=== PATIENT | male | born 1965 | race Caucasian/White ===

== ENCOUNTER 2023-06-25 12:34 | Outpatient (OUT) | payer OTHER, SELFPAY ==
[2023-06-25 13:12] LABS: Basophils Percent Auto 0.7 % (0.2-2.0); Eosinophils Absolute Auto 0.2 10^3/uL (0.0-0.7); Eosinophils Percent Auto 2.9 % (0.9-7.0); Hematocrit 38.7 % (42.0-54.0); Hemoglobin 12.8 g/dL (14.0-18.0); Immature Granulocytes Abs Auto 0.02 10^3/uL (0.00-0.03); Immature Granulocytes Pct Auto 0.4 % (0.0-0.5); Lymphocytes Absolute Auto 1.7 10^3/uL (1.2-3.8); Lymphocytes Percent Auto 30.8 % (20.5-60.0); Mean Corpuscular HGB Conc 33.1 g/dL (29.9-35.2); Mean Corpuscular Hemoglobin 31.1 pg (25.9-34.0); Mean Corpuscular Volume 94.2 fL (80.0-94.0); Mean Platelet Volume 9.3 fL (9.5-13.5); Monocytes Absolute Auto 0.5 10^3/uL (0.3-0.8); Monocytes Percent Auto 8.5 % (1.7-12.0); Neutrophils Absolute Auto 3.2 10^3/uL (1.4-6.5); Neutrophils Percent Auto 56.7 % (43.0-75.0); Platelet Count 201 10^3/uL (150-450); Red Blood Count 4.11 10^6/uL (4.70-6.10); Red Cell Distribution Width 12.4 % (11.0-15.0); White Blood Count 5.6 10^3/uL (4.0-11.0)
== END 2023-06-25 12:35 | disposition home or self-care (01) ==
PROVIDERS: PCP Nurse Practitioner; Visit Provider Nurse Practitioner
DX: D50.9 Iron deficiency anemia, unspecified (principal)
CPT/HCPCS: 36415; 82728; 83540; 85025

== ENCOUNTER 2023-08-07 14:16 | Outpatient (OUT) | payer OTHER, SELFPAY ==
--- OUTSIDE RECORDS SUMMARY | 2023-08-07 14:26 | XMS_ITS | CCD ---
Author Name Unknown Address [address] [place] [address] Organization [facility] Care Team Providers Care School Bus Driver/Teacher Assistant Name Role Phone PHYSICIAN, DEFAULT Unavailable Unavailable PHYSICIAN, DEFAULT Unavailable Unavailable ELTAHAWY, EHAB A Unavailable Unavailable [place]WY, EHAB A Unavailable Unavailable AIDEE QUISPE AM Unavailable Unavailable AICHHOLZ, MILE Unavailable Unavailable AICHHOLZ, LINEN MANAGER MILE Consulting Unavailable AICHHOLZ, LINEN MANAGER MILE Attending Unavailable AICHHOLZ, LINEN MANAGER MILE Admitting Unavailable AICHHOLZ, LINEN MANAGER MILE Primary Care Unavailable Allergies Allergy Classification Reported Allergen(s) Allergy Type Date of Onset Reaction(s) Facility (2 sources) No Known Allergies; Translations: [No Known Allergies] Propensity to adverse reactions (disorder) 8 [facility] Repository Problems Problem Classification Problem Date Documented Date Episodic/Chronic Coronary atherosclerosis and other heart disease (2 sources) Atherosclerotic heart disease of [place] coronary artery without angina pectoris; Translations: [ATHSCL HEART DISEASE OF [place] CORONARY ARTERY W/O ANG PCTRS] Onset: 12-05-2017 Chronic Deficiency and other anemia (1 source) Iron deficiency anemia, unspecified; Translations: [IRON DEFICIENCY ANEMIA UNSPECIFIED] Onset: 06-14-2022 Episodic Essential hypertension (5 sources) Essential (primary) hypertension; Translations: [ESSENTIAL (PRIMARY) HYPERTENSION] Onset: 12-05-2017 Chronic Other aftercare (1 source) residential (current) use of aspirin; Translations: [AUTOMATIC PATTERN EDGER (CURRENT) USE OF ASPIRIN] Onset: 12-05-2017 Episodic Substance-related disorders (1 source) Nicotine dependence, cigarettes, uncomplicated; Translations: [NICOTINE DEPENDENCE, CIGARETTES, UNCOMPLICATED] Onset: 12-05-2017 Chronic Unclassified (5 sources) Abnormal result of other cardiovascular function study; Translations: [Encounter for screening for malignant neoplasm of prostate] Onset: 12-05-2017 Episodic Unclassified (2 sources) Unknown / UNK(Unknown) Onset: 12-05-2017 Results Test Name Value Interpretation Reference Range Facility CBC AUTO DIFFon 06-12-2022 BASO # 0.1 103/ul Normal 0.0-0.1 [facility] Comment on above: Performed By: #### CBC #### [facility] [address] [address] [address] Randell Stauffer Basophils/100 WBC (Bld) 0.9 % Normal 0.2-2.0 [facility] Comment on above: Performed By: #### CBC #### [facility] [address] [address] [address] Randell Stauffer EO # 0.2 103/ul Normal 0.0-0.7 [facility] Comment on above: Performed By: #### CBC #### [facility] [address] [address] [address] Randell Stauffer Eosinophils/100 WBC (Bld) 2.9 % Normal 0.9-7.0 [facility] Comment on above: Performed By: #### CBC #### [facility] [address] [address] [address] Randell Stauffer Erythrocyte distribution width (RBC) [Ratio] 12.4 % Normal 11.0-15.0 [facility] Comment on above: Performed By: #### CBC #### [facility] [address] [address] [address] Randell Stauffer Hematocrit (Bld) [Volume fraction] 39.1 % Critically low 42.0-54.0 [facility] Comment on above: Performed By: #### CBC #### [facility] [address] [address] [address] Randell Stauffer Hemoglobin (Bld) [Mass/Vol] 13.0 g/dL Critically low 14.0-18.0 [facility] Comment on above: Performed By: #### CBC #### [facility] [address] [address] [address] Randell Stauffer IG # 0.02 10e3/ul Normal 0.00-0.03 [facility] Comment on above: Performed By: #### CBC #### [facility] [address] [place] [address] Dr. Randell Stauffer IG % 0.4 % Normal 0.0-0.5 [facility] Comment on above: Performed By: #### CBC #### [facility] [address] [place] [address] Dr. Randell Stauffer LYMPH # 1.5 103/ul Normal 1.2-3.8 [facility] Comment on above: Performed By: #### CBC #### [facility] [address] [place] [address] Dr. Randell Stauffer Lymphocytes/100 WBC (Bld) 27.8 % Normal 20.5-60.0 [facility] Comment on above: Performed By: #### CBC #### [facility] [address] [place] [address] Dr. Randell Stauffer MANUAL DIFF REQ NO Normal [facility] Comment on above: Performed By: #### CBC #### [facility] [address] [place] [address] Dr. Randell Stauffer MCH (RBC) [Entitic mass] 30.6 pg Normal 25.9-34.0 [facility] Comment on above: Performed By: #### CBC #### [facility] [address] [place] [address] Dr. Randell Stauffer MCHC (RBC) [Mass/Vol] 33.2 g/dL Normal 29.9-35.2 [facility] Comment on above: Performed By: #### CBC #### [facility] [address] [place] [address] Dr. Randell Stauffer MCV (RBC) [Entitic vol] 92.0 fL Normal 80.0-94.0 [facility] Comment on above: Performed By: #### CBC #### [facility] [address] [place] [address] Dr. Randell Stauffer MONO # 0.4 103/ul Normal 0.3-0.8 [facility] Comment on above: Performed By: #### CBC #### [facility] [address] [place] [address] Dr. Randell Stauffer Monocytes/100 WBC (Bld) 7.7 % Normal 1.7-12.0 [facility] Comment on above: Performed By: #### CBC #### [facility] [address] [place] [address] Dr. Randell Staufefr NEUT # 3.3 103/ul Normal 1.4-6.5 [facility] Comment on above: Performed By: #### CBC #### [facility] [address] [place] [address] Dr. Randell Stauffer Neutrophils/100 WBC (Bld) 60.3 % Normal 43.0-75.0 [facility] Comment on above: Performed By: #### CBC #### [facility] [address] [place] [address] Dr. Randell Stauffer Platelet mean volume (Bld) [Entitic vol] 9.9 fL Normal 9.5-13.5 [facility] Comment on above: Performed By: #### CBC #### [facility] [address] [place] [address] Dr. Randell Stauffer PLT 252 103/ul Normal 150-450 [facility] Comment on above: Performed By: #### CBC #### [facility] [address] [place] [address] Dr. Randell Stauffer RBC 4.25 106/ul Critically low 4.70-6.10 [facility] Comment on above: Performed By: #### CBC #### [facility] [address] [place] [address] Dr. Randell Stauffer WBC 5.4 103/ul Normal 4.0-11.0 [facility] Comment on above: Performed By: #### CBC #### [facility] [address] [place] [address] Dr. Randell Stauffer IRONon 06-12-2022 Iron [Mass/Vol] 48.0 ug/dL Critically low 65.0-175.0 [facility] Comment on above: Performed By: #### PSASC, IRON #### [facility] [address] [place] [address] Dr. Randell Stauffer LIPID PROFILEon 06-12-2022 CHOL-HDL RATIO NORM SEE BELOW Normal [facility] Comment on above: Result Comment: 3.3 - 4.4 LOW RISK 4.4 - 7.1 AVERAGE RISK 7.1 - 11.0 MODERATE RISK >11.0 HIGH RISK Performed By: #### L IPID, CMP #### [facility] [address] [address] [address] Randell Stauffer Cholesterol [Mass/Vol] 121 mg/dL Normal <=200 [facility] Comment on above: Performed By: #### LIPID, CMP #### [facility] [address] [address] [address] Randell Stauffer Cholesterol in HDL [Mass/Vol] 37 mg/dL Critically low 40-60 [facility] Comment on above: Performed By: #### LIPID, CMP #### [facility] [address] [address] [address] Randell Stauffer Cholesterol in LDL [Mass/Vol] 68.8 mg/dL Normal [facility] Comment on above: Performed By: #### LIPID, CMP #### [facility] [address] [address] [address] Randell Stauffer Cholesterol.tota l/Cholesterol in HDL [Mass ratio] 3.3 {ratio} Normal [facility] Comment on above: Performed By: #### LIPID, CMP #### [facility] [address] [address] [address] Randell Stauffer HDL NORMAL > or = 60 mg/dl - LO W CARDIOVASCULAR RISK <40 mg/dl - HIGH CARDIOVASCULAR RISK Normal [facility] Comment on above: Performed By: #### LIPID, CMP #### [facility] [address] [address] [address] Randell Stauffer LDL CALC NORMAL SEE BELOW Normal [facility] Comment on above: Result Comment: <100 mg/dl OPTIMAL 100 - 129 mg/dl NEAR OR ABOVE OPTIMAL 130 - 159 mg/dl BORDERLINE HIGH 160 - 189 mg/dl HIGH >190 mg/dl VERY HIGH Performed By: #### L IPID, CMP #### [facility] [address] [address] [address] Randell Stauffer Triglyceride [Mass/Vol] 76 mg/dL Normal <=150 [facility] Comment on above: Performed By: #### LIPID, CMP #### [facility] [address] [place] [address] Dr. Randell Stauffer VLDL CALC 15.2 mg/dL Normal [facility] Comment on above: Performed By: #### LIPID, CMP #### [facility] [address] [place] [address] Dr. Randell Stauffer PROF 14(COMP METB)on 022 Albumin [Mass/Vol] 3.5 g/dL Normal 3.4-5.0 [facility] Comment on above: Performed By: #### LIPID, CMP #### [facility] [address] [place] [address] Dr. Randell Stauffer Albumin/Globulin [Mass ratio] 0.8 {ratio} Normal [facility] Comment on above: Performed By: #### LIPID, CMP #### [facility] [address] [place] [address] Dr. Randell Stauffer ALP [Catalytic activity/Vol] 91 U/L Normal 46-116 [facility] Comment on above: Performed By: #### LIPID, CMP #### [facility] [address] [place] [address] Dr. Randell Stauffer ALT [Catalytic activity/Vol] 16 U/L Normal 16-63 [facility] Comment on above: Performed By: #### LIPID, CMP #### [facility] [address] [place] [address] Dr. Randell Stauffer Anion gap [Moles/Vol] 10.6 mmol/L Normal [facility] Comment on above: Performed By: #### LIPID, CMP #### [facility] [address] [place] [address] Dr. Randell Stauffer AST [Catalytic activity/Vol] 19 U/L Normal 15-37 [facility] Comment on above: Performed By: #### LIPID, CMP #### [facility] [address] [place] [address] Dr. Randell Stauffer Bilirubin [Mass/Vol] 0.3 mg/dL Normal 0.2-1.0 [facility] Comment on above: Performed By: #### LIPID, CMP #### [facility] [address] [place] [address] Dr. Randell Stauffer Calcium [Mass/Vol] 9.0 mg/dL Normal 8.5-10.1 [facility] Comment on above: Performed By: #### LIPID, CMP #### [facility] [address] [place] [address] Dr. Randell Stauffer Chloride [Moles/Vol] 104 mmol/L Normal 98-107 [facility] Comment on above: Performed By: #### LIPID, CMP #### [facility] [address] [place] [address] Dr. Randell Stauffer CO2 [Moles/Vol] 28.4 mmol/L Normal 21.0-32.0 [facility] Comment on above: Performed By: #### LIPID, CMP #### [facility] [address] [place] [address] Dr. Randell Stauffer Creatinine [Mass/Vol] 1.16 mg/dL Normal 0.70-1.30 [facility] Comment on above: Performed By: #### LIPID, CMP #### [facility] [address] [place] [address] Dr. Randell Stauffer EGFR-AF BOLIVIAN >60 Normal >=60 [facility] Comment on above: Performed By: #### LIPID, CMP #### [facility] [address] [place] [address] Dr. Randell Stauffer EGFR-NON AF BOLIVIAN >60 Normal >=60 [facility] Comment on above: Performed By: #### LIPID, CMP #### [facility] [address] [place] [address] Dr. Randell Stauffer Globulin (S) [Mass/Vol] 4.2 g/dL Normal [facility] Comment on above: Performed By: #### LIPID, CMP #### [facility] [address] [place] [address] Dr. Randell Stauffer Glucose [Mass/Vol] 91 mg/dL Normal 74-106 [facility] Comment on above: Performed By: #### LIPID, CMP #### [facility] [address] [address] [address] Randell Stauffer Potassium [Moles/Vol] 4.0 mmol/L Normal 3.5-5.1 [facility] Comment on above: Performed By: #### LIPID, CMP #### [facility] [address] [address] [address] Randell Stauffer Protein [Mass/Vol] 7.7 g/dL Normal 6.4-8.2 [facility] Comment on above: Performed By: #### LIPID, CMP #### [facility] [address] [address] [address] Randell Stauffer Sodium [Moles/Vol] 139 mmol/L Normal 136-145 [facility] Comment on above: Performed By: #### LIPID, CMP #### [facility] [address] [place] [address] Dr. Randell Stauffer Urea nitrogen [Mass/Vol] 14.0 mg/dL Normal 7.0-18.0 [facility] Comment on above: Performed By: #### LIPID, CMP #### [facility] [address] [place] [address] Dr. Randell Stauffer Urea nitrogen/Creatin ine [Mass ratio] 12.1 mg/mg Normal [facility] Comment on above: Performed By: #### LIPID, CMP #### [facility] [address] [place] [address] Dr. Randell Stauffer UA RANDOM W/MICROSCOPICon BACTERIA NONE SEEN Normal NONE SEEN [facility] Comment on above: Performed By: #### UAMIC #### [facility] [address] [place] [address] Dr. Randell Stauffer Bilirubin Ql (U) Negative Normal NEGATIVE [facility] Comment on above: Performed By: #### UAMIC #### [facility] [address] [place] [address] Dr. Randell Stauffer CA OX CRYSTALS FEW Normal [facility] Comment on above: Performed By: #### UAMIC #### [facility] [address] [place] [address] Dr. Randell Stauffer CAST NONE SEEN Normal NONE SEEN [facility] Comment on above: Performed By: #### UAMIC #### [facility] [address] [place] [address] Dr. Randell Stauffer Clarity (U) CLEAR Normal CLEAR [facility] Comment on above: Performed By: #### UAMIC #### [facility] [address] [place] [address] Dr. Randell Stauffer Color (U) LT. YELLOW Normal YELLOW [facility] Comment on above: Performed By: #### UAMIC #### [facility] [address] [place] [address] Dr. Randell Stauffer Crystals LM Nom (Urine sed) SEEN Abnormal NONE SEEN [facility] Comment on above: Performed By: #### UAMIC #### [facility] [address] [place] [address] Dr. Randell Stauffer Epithelial cells LM Ql (Urine sed) RARE Normal NONE SEEN /RARE [facility] Comment on above: Performed By: #### UAMIC #### [facility] [address] [place] [address] Dr. Randell Stauffer Glucose Ql (U) Negative Normal NEGATIVE [facility] Comment on above: Performed By: #### UAMIC #### [facility] [address] [place] [address] Dr. Randell Stauffer Hemoglobin Ql (U) Negative Normal NEGATIVE [facility] Comment on above: Performed By: #### UAMIC #### [facility] [address] [place] [address] Dr. Randell Stauffer Ketones Ql (U) Negative Normal NEGATIVE [facility] Comment on above: Performed By: #### UAMIC #### [facility] [address] [place] [address] Dr. Randell Stauffer LEUKOCYTES Negative Normal NEGATIVE [facility] Comment on above: Performed By: #### UAMIC #### [facility] [address] [place] [address] Dr. Randell Stauffer MUCOUS NONE SEEN Normal NONE SEEN [facility] Comment on above: Performed By: #### UAMIC #### [facility] [address] [address] [address] Randell Stauffer Nitrite Ql (U) Negative Normal NEGATIVE [facility] Comment on above: Performed By: #### UAMIC #### [facility] [address] [place] [address] Dr. Randell Stauffer pH (U) 6.0 [pH] Normal 5-9 [facility] Comment on above: Performed By: #### UAMIC #### [facility] [address] [place] [address] Dr. Randell Stauffer RBC 0-2 Normal 0-2 [facility] Comment on above: Performed By: #### UAMIC #### [facility] [address] [place] [address] Dr. Randell Stauffer SPEC GRAVITY 1.025 Normal 1.005-<=1. 025 [facility] Comment on above: Performed By: #### UAMIC #### [facility] [address] [place] [address] Dr. Randell Stauffer UA PROTEIN Negative Normal NEGATIVE/ TRACE [facility] Comment on above: Performed By: #### UAMIC #### [facility] [address] [place] [address] Dr. Randell Stauffer Urobilinogen Qn (U) 0.2 {Ag'U}/dL Normal 0.2 - 1.0 [facility] Comment on above: Performed By: #### UAMIC #### [facility] [address] [place] [address] Dr. Randell Stauffer WBC 0-2 Abnormal NONE SEEN [facility] Comment on above: Performed By: #### UAMIC #### [facility] [address] [place] [address] Dr. Randell Stauffer Cardiovascular Lab Reporton 12-05-2017 Cardiovascular Lab Report [place] Patient Name: Logan Del Cid [facility]: [id number] Physician: Ela Broussard M.D.Department of Service Date: 12/05/2017Medicine Birthdate: 1965Division of Room #: [id number] [facility]ovascularServic[facility] [facility].[place], [place] [address]Frxxr Fax Cardiovascular Laboratory ReportFINAL IMPRESSION:1. Severe stenosis of the left circumflex coronary artery, successfully treated by balloon angioplasty and bare-metal stent placement.2. 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 Mild disease of the left anterior descending coronary artery.4. Mildly reduced global left ventricular systolic function.RECOMMENDATIONS:1. Aspirin 81 mg lifelong.2. Plavix 75 mg daily for a minimum of 4 weeks; the patient may discontinue Plavix for dental work after a month of dual antiplatelet therapy.3. Aggressive cardiovascular risk factor modification.4. Optimization of medical management; continue angiotensin-converting enzyme inhibitor, we will add Coreg 12.5 mg p.o. b.i.d., and Lipitor 80 mg daily.5. Follow up liver function tests and fasting lipid profile in 6 weeks.6. Follow up with Dr. Broussard in the [facility] in 3 weeks to discuss need for revascularization of the subtotally occluded right coronary artery.7. Follow up with CAYLA Stevens as scheduled.PROCEDURES: Limited femoral angiography, bilateral selective coronaryangiography, percutaneous balloon angioplasty and bare-metal stentplacement in the left circumflex coronary artery, placement of a 6-[place] Angio-Seal device.METHODS: After risks, benefits, and alternatives were explained, writteninformed consent was obtained. The patient was prepped and draped in usualsterile fashion over both groins. Using 1% lidocaine solution, localinfiltration anesthesia was achieved. Using a modified Seldingertechnique, access to the right common femoral artery was obtained. A6-[place] 11 cm sheath was exchanged in without difficulty. Baselinefemoral angiography was performed.Bilateral selective coronary angiography was then performed using JL4 andAR2 catheter. After reviewing the images, it was elected to proceed withan interventional procedure.A 6-[place] XB 3.5 guide catheter was advanced over J-wire and coaxiallyengaged into the left main coronary ostium. A 0.014 Runthrough NS wire wasadvanced through the catheter and used to traverse the stenosis andpositioned distally. Balloon angioplasty was performed along the length ofthe stenosis using a 2.5 x 20 mm noncompliant balloon. An inadequateresult was treated using a 3.5 x 32 mm Rebel bare-metal stent. Postdilation was performed using a 3.5 x 20 mm noncompliant balloon. Thedistal lesion was uncovered after wire removal. The vessel was rewired andthe stenosis treated using direct stent placement of a 3.0 x 16 mm Rebelbare-metal stent. Post dilation was performed using a 3.5 x 12 mmnoncompliant balloon. Repeat imaging showed an optimal result. The wirewas removed. Final images showed YAEL-3 flow with no dissection, thrombus,or distal wire trauma.A 6-[place] VIP Angio-Seal device was deployed per protocol achievingoptimal hemostasis. Overall, the patient tolerated the procedure well.There were no complications. He was to be transferred to the holding areain stable condition.FINDINGS:Hemodynamics:A O 140/94.LEFT VENTRICULOGRAPHY: This was not performed. Ejection fraction is 45%by stress testing.CORONARY ARTERIES:1. Left main coronary artery: This arises from the left coronary cusp. It bifurcates into the left anterior descending and left circumflex coronary artery. It shows mild plaque.2. Left circumflex coronary artery: This shows diffuse disease with a long segment of 70% to 80% stenosis in the proximal to midportion of the vessel. This was treated using balloon angioplasty and placement of a 3.5 x 32 mm bare-metal stent with postdilation as above. More distally there is a short segment 70% stenosis. This was treated using a 3.0 x 16 mm Rebel bare-metal stent with postdilation as above. Final images showed YAEL-3 flow with no dissection, thrombus, or distal wire trauma. There were [id number] collaterals.3. Left anterior descending coronary artery: This shows mild plaque and luminal irregularities with no high-grade stenosis. There are [id number] collaterals.4. Right coronary artery. This is subtotally occluded and originates from an anterior location on the right coronary cusp. There are 99% stenosis in the proximal mid and distal portions followed by occlusion. Distal filling is seen via robust contralateral collaterals.LIMITED FEMORAL ANGIOGRAPHY: This shows mild plaque and anatomy suitablefor closure device. The access site is somewhat high, but beneath thelevel of the upper femoral head and the inferior epigastric artery.INDICATIONS: Abnormal stress test.Electronically Signed by:Ela Broussard M.D. 12/17/2017 03:00 P Ela Broussard M.D.Date Dict: 12/05/2017/11:03 Desiree Broussard M.D.Date Trans: 12/05/2017 11:33 [id number]: Mile Abraham N.P. [facility] [address] [address] Aidee Quispe M.D. [address] [place], [place] [id number] [facility] Encounters Encounter Date Encounter Type Care Provider Facility Start: 06-12-2022 End: 06-13-2022 ambulatory LINEN MANAGER MILE ABRAHAM Facility: Start: 12-05-2017 End: 12-06-2017 Ambulatory ELA BROUSSARD Facility:[facility] Start: 10-30-2017 End: 10-31-2017 Ambulatory DEFAULT PHYSICIAN Facility:[facility] Procedures Date Procedure Procedure Detail Performing Clinician Start: 06-12-2022 PSA screening AGGIE ABRAHAM Comment on above: Performed By: #### P [facility] #### [facility] [address] [place] [address] Dr. Randell Stauffer Payers Date Payer Category Payer Unknown [id number] 1959 Unknown [id number] Unknown Summary Purpose Family History No Family History Records FoundNo Family History Records Found Advance Directives No Advanced Directives Records FoundNo Advanced Directives Records Found Additional Source Comments (unrecognized sect ion and content) No Status Records FoundNo Status Records Found INFORMATION SOURCE (unrecogn ized section and content) DATE CREATED AUTHOR 01/29/2018 [facility] DATE CREATED AUTHOR AUTHOR'S ORGANIZ ATION 06/15/2022 The [facility] FOR RECORDS PERTAINING TO PATIENTS WHO ARE OR HAVE BEEN ENROLLED IN A CHEMICAL DEPENDENCY/SUBSTANCEABUSE PROGRAM, SOME INFORMATION MAY BE OMITTED. This clinical summary was aggregated from multiple sources. Caution should be exercised in using it in the provision of clinical care. This summary normalizes information from multiple sources, and as a consequence, information in this document may materially change the coding, format and clinical context of patient data. In addition, data may be omitted in some cases. CLINICAL DECISIONS SHOULD BE BASED ON THE PRIMARY CLINICAL RECORDS. [facility], [facility]. provides no warranty or guarantee of the accuracy or completeness of information in this document.
[2023-08-07 14:57] LABS: Bilirubin Urine NEGATIVE (NEGATIVE); Blood Urine NEGATIVE (NEGATIVE); Clarity Urine CLEAR (CLEAR); Color Urine LT. YELLOW (YELLOW); Glucose Urine UA NEGATIVE (NEGATIVE); Ketones Urine NEGATIVE (NEGATIVE); Leukocyte Esterase Urine NEGATIVE (NEGATIVE); Nitrite Urine NEGATIVE (NEGATIVE); Protein Urine NEGATIVE (NEG/TRACE); Specific Gravity Urine 1.015 (1.005-1.025); Urobilinogen Urine 0.2 EU/dL (0.2-1.0)
[2023-08-07 15:18] LABS: Bacteria Urine TRACE #/HPF (NONE SEEN); Cast Seen? NONE SEEN #/LPF (NONE SEEN); Crystals Seen? None Seen #/HPF (None Seen); Mucus Urine NONE SEEN (NONE SEEN); RBC Urine 0-2 #/HPF (0-2); Squamous Epithelial Cell Urine NONE SEEN #/LPF (NONE/RARE); WBC Urine NONE SEEN #/HPF (NONE SEEN)
[2023-08-07 15:27] LABS: Alanine Aminotransferase 35 U/L (16-63); Albumin Globulin Ratio 0.7; Albumin Level 3.2 g/dL (3.4-5.0); Alkaline Phosphatase 92 U/L (46-116); Anion Gap 10.8; Aspartate Amino Transferase 23 U/L (15-37); BUN Creatinine Ratio 16.3; Bilirubin Total 0.6 mg/dL (0.2-1.0); Calcium 9.5 mg/dL (8.5-10.1); Carbon Dioxide 29.3 mmol/L (21.0-32.0); Chloride 103 mmol/L (98-107); Chol HDL Ratio 3.2; Cholesterol 124 mg/dL (<=200); Estimated GFR (African America >60 (>=60); Estimated GFR (Non-African Ame >60 (>=60); Globulin 4.5 g/dL; Glucose 92 mg/dL (74-106); HDL Cholesterol 39 mg/dL (40-60); Potassium 4.1 mmol/L (3.5-5.1); Sodium 139 mmol/L (136-145); Total Protein 7.7 g/dL (6.4-8.2); Triglycerides 107 mg/dL (<=150); VLDL CHOLESTEROL 21.4 mg/dL
[2023-08-07 15:37] LABS: Prostate Specific Antigen Scrn 1.29 ng/mL (<=4.00)
== END 2023-08-07 14:17 | disposition home or self-care (01) ==
LOC: LAB 14:18
PROVIDERS: PCP Nurse Practitioner; Visit Provider Nurse Practitioner
DX: Z12.5 Encounter for screening for malignant neoplasm of prostate (principal); I10 Essential (primary) hypertension; I25.10 Atherosclerotic heart disease of native coronary artery without angina pectoris
CPT/HCPCS: 36415; 80053; 80061; 81001; G0103

== ENCOUNTER 2024-08-09 13:57 | Outpatient (OUT) | payer OTHER, SELFPAY ==
[2024-08-09 14:18] LABS: Basophils Percent Auto 0.7 % (0.2-2.0); Eosinophils Absolute Auto 0.1 10^3/uL (0.0-0.7); Eosinophils Percent Auto 2.5 % (0.9-7.0); Hematocrit 41.8 % (42.0-54.0); Hemoglobin 14.6 g/dL (14.0-18.0); Immature Granulocytes Abs Auto 0.01 10^3/uL (0.00-0.03); Immature Granulocytes Pct Auto 0.2 % (0.0-0.5); Lymphocytes Absolute Auto 1.7 10^3/uL (1.2-3.8); Mean Corpuscular HGB Conc 34.9 g/dL (29.9-35.2); Mean Corpuscular Volume 91.7 fL (80.0-94.0); Mean Platelet Volume 9.5 fL (9.5-13.5); Monocytes Absolute Auto 0.4 10^3/uL (0.3-0.8); Monocytes Percent Auto 7.6 % (1.7-12.0); Neutrophils Absolute Auto 3.4 10^3/uL (1.4-6.5); Platelet Count 198 10^3/uL (150-450); Red Blood Count 4.56 10^6/uL (4.70-6.10); Red Cell Distribution Width 12.3 % (11.0-15.0); White Blood Count 5.7 10^3/uL (4.0-11.0)
[2024-08-09 14:47] LABS: Bilirubin Urine NEGATIVE (NEGATIVE); Blood Urine NEGATIVE (NEGATIVE); Clarity Urine CLEAR (CLEAR); Color Urine YELLOW (YELLOW); Glucose Urine UA NEGATIVE (NEGATIVE); Ketones Urine NEGATIVE (NEGATIVE); Leukocyte Esterase Urine NEGATIVE (NEGATIVE); Nitrite Urine NEGATIVE (NEGATIVE); Protein Urine NEGATIVE (NEG/TRACE); Specific Gravity Urine >=1.030 (1.005-1.025); Urobilinogen Urine 0.2 EU/dL (0.2-1.0)
[2024-08-09 14:48] LABS: Urine Microscopic Indicated NO
[2024-08-09 14:50] LABS: Alanine Aminotransferase 33 U/L (16-63); Albumin Globulin Ratio 0.9; Albumin Level 3.5 g/dL (3.4-5.0); Alkaline Phosphatase 90 U/L (46-116); Anion Gap 7.7; Aspartate Amino Transferase 24 U/L (15-37); BUN Creatinine Ratio 11.2; Bilirubin Total 0.7 mg/dL (0.2-1.0); Calcium 9.1 mg/dL (8.5-10.1); Carbon Dioxide 30.1 mmol/L (21.0-32.0); Chloride 105 mmol/L (98-107); Chol HDL Ratio 3.4; Cholesterol 137 mg/dL (<=200); Estimated GFR (African America >60 (>=60 mL/min/1.73m^2); Estimated GFR (Non-African Ame 55 (>=60 mL/min/1.73m^2); Glucose 111 mg/dL (74-106); HDL Cholesterol 40 mg/dL (40-60); Potassium 3.8 mmol/L (3.5-5.1); Sodium 139 mmol/L (136-145); Total Protein 7.5 g/dL (6.4-8.2); Triglycerides 163 mg/dL (<=150); VLDL CHOLESTEROL 32.6 mg/dL
[2024-08-09 15:03] LABS: Prostate Specific Antigen Scrn 1.13 ng/mL (<=4.00)
[2024-08-09 15:12] LABS: Creatinine Urine Random 318.71 mg/dL (20.00-300.00); Microalbumin Urine Random 1.3 mg/dL (<=30.0)
== END 2024-08-09 13:58 | disposition home or self-care (01) ==
LOC: LAB 14:00
PROVIDERS: PCP Nurse Practitioner; Visit Provider Nurse Practitioner
DX: I73.9 Peripheral vascular disease, unspecified (principal); I10 Essential (primary) hypertension; Z12.5 Encounter for screening for malignant neoplasm of prostate; E78.2 Mixed hyperlipidemia; I25.10 Atherosclerotic heart disease of native coronary artery without angina pectoris
CPT/HCPCS: 36415; 80053; 80061; 81003; 82043; 82570; 85025; G0103

== ENCOUNTER 2024-12-16 09:50 | Outpatient (OUT) | payer OTHER, SELFPAY ==
--- NOTE | 2024-12-16 10:00 | CA_ITS ---
Patient Name: LOGAN DEL CID MR#: [id number] : 1965 Exam Date: 12/16/2024 Ordering Doctor: AIXA BERNAL CNP ECHOCARDIOGRAM REPORT PROCEDURE: CA ECHO DOPPLER COMPLETE INDICATIONS: Nonrheumatic mitral valve regurgitation, hypertension, cardiac stents COMPARISON: None. DESCRIPTION: COMPLETE ECHOCARDIOGRAM Real-time transthoracic echocardiography with 2D, M-mode, spectral and color flow Doppler performed. QUALITY: Technical quality was good. LEFT VENTRICLE: Normal chamber size. Mild concentric left ventricular hypertrophy. Normal systolic function. There is hypokinesis of the basal inferior segment, with good contractility of the remaining segments. LV EF: Normal left ventricular ejection fraction, (>55%). DIASTOLIC: ATRIAL SEPTUM: Visually appears intact. LEFT ATRIUM: Mild dilatation. RIGHT ATRIUM: Moderate dilatation. RIGHT VENTRICLE: Normal chamber size. Normal right ventricular systolic function. TRICUSPID VALVE: Normal mobility and thickness. No stenosis with trivial regurgitation. Doppler studies reveal mildly (35-45) elevated right sided pressures. RVSP 39 mmHg MITRAL VALVE: Normal mobility and thickness. No evidence of mitral valve stenosis. There is no mitral annular calcification. Trivial mitral regurgitation. AORTIC VALVE: Normal trileaflet appearance. Normal leaflet mobility. No evidence of aortic valve stenosis. No aortic regurgitation. AORTIC ROOT: Normal diameter and appearance, measuring 3.4 cm. Ascending aorta is normal in size. PULMONIC VALVE: Normal thickness and mobility. No stenosis. Trivial regurgitation. PERICARDIUM: No evidence of pericardial effusion. IVC: IVC is normal in size, does not fully collapse. PLEURA: CONCLUSION: 1. Mild concentric left ventricular hypertrophy with normal systolic function. Estimated LVEF is 60%. There is hypokinesis of the basal inferior segment. 2. Normal right ventricular size and systolic function. 3. No significant valvular dysfunction. 4. Mild to moderate biatrial dilatation. 5. Mildly elevated right-sided pressures. Adult Echocardiography Procedure Report Left Ventricle LVEDD (3.7 - 5.6 cm): 4.12 cm LVESD (2.2 - 4.0 cm): 3.21 cm LVIVS thickness (0.6 - 1.2 cm): 1.15 cm LVPW thickness (0.5 - 1.0 cm): 1.32 cm e': 0.10 m/s E - e': 6.03 LVOT Max Gradient: 1.15 mm[Hg] LVOT Area (cm2): 0.54 m/s Peak Velocity (LVOT): 0.54 m/s Mean Velocity (LVOT): 0.38 m/s LVOT Diameter 2.21 cm Left Atrium LA Volume Index (2D A2C): 39.50 ml/m2 Left Atrium Systolic Dimension: 3.61 cm Mitral Valve MV E to A Ratio: 1.35 Mitral Valve A-Wave Peak Velocity: 0.46 m/s Mitral Valve E-Wave Peak Velocity: 0.62 m/s Right Ventricle Aorta AO Root Diam: 3.36 cm Ascending Ao Diam: 2.63 cm Aortic Valve AoV Area (Peak Jason): 2.46 cm2, 2.46 cm2 AoV Area (VTI): 2.84 cm2, 2.84 cm2 Peak Velocity(Antegrade Flow): 0.84 m/s Peak Gradient(Antegrade Flow): 2.80 mm[Hg] Mean Velocity(Antegrade Flow): 0.61 m/s Mean Gradient(Antegrade Flow): 1.62 mm[Hg] Velocity Time Integral: 20.47 cm Tricuspid Valve Peak Velocity (Regurgitant Flow): 3.01 m/s, 2.41 m/s, 2.76 m/s Pulmonic Valve Mean Gradient: 2.54 mm[Hg] Mean Velocity: 0.74 m/s Peak Velocity: 1.13 m/s, 1.15 m/s Peak Gradient: 5.27 mm[Hg], 5.11 mm[Hg] Right Atrium Right Atrium Systolic Pressure: 73.92 ml, 73.92 ml Dictated by: Chuy Newman M.D. on 12/16/2024 at 21:08 Approved by: Chuy Newman M.D. on 12/16/2024 at 21:13
== END 2024-12-16 09:51 | disposition home or self-care (01) ==
LOC: CARD 09:50
PROVIDERS: PCP Nurse Practitioner; Visit Provider Nurse Practitioner Family
DX: I25.10 Atherosclerotic heart disease of native coronary artery without angina pectoris (principal); I34.0 Nonrheumatic mitral (valve) insufficiency; I11.9 Hypertensive heart disease without heart failure
CPT/HCPCS: 93306

== ENCOUNTER 2025-01-11 08:53 | Outpatient (OUT) | payer OTHER, SELFPAY ==
--- OUTSIDE RECORDS SUMMARY | 2024-12-30 10:15 | XMS_ITS | Encounter Summary ---
Author Organization [facility] Address [address] [place] [address] Care Team Providers Care Patient Support Associate Name Role Phone Mile Abraham MD Primary Care Provider [phone] Encounter Details Date Type Department Care Team (Late st Contact Info) Description 12/30/2024 10:15 AM EDT Office Visit [facility] [address] [place] [address] Jacque Randall MD [address] [facility] [address] [facility] [place] [address] Coronary artery disease involving [place] coronary artery of [place] heart without angina pectoris (Primary Dx); Nonrheumatic mitral valve regurgitation; Benign hypertensive heart disease without congestive heart failure; Chronic total occlusion of coronary artery Social History Tobacco Use Types Packs/Day Years Used Date Smoking Tobacco: Former Cigarettes 2017 Smokeless Tobacco: Never Tobacco Cessation:Counseling Given: Not Answered Alcohol Use Standard Drinks/Week Comments Not Currently 0 (1 standard drink = 0.6 oz pur e alcohol) 6 to 12 per week [place] Safety & Environment Answer Date Rec orded Fear of Current or Ex-Partner Not on file Emotionally Abused Not on file 10/02/2023 Physically Abused Not on file 10/02/2023 Sexually Abused Not on file 10/02/2023 Physically or Sexually Abused Not on file Sex and Gender Information Value Date Recorded Sex Assigned at Not on file Gender Identity Not on file Sexual Orientation Not on file documented as of this encounter Last Filed Vital Signs Vital Sign Reading Time Taken Comments Blood Pressure 133/88 12/30/2024 10:01 AM EDT Pulse 62 12/30/2024 10:01 AM EDT Temperature - - Respiratory Rate - - Oxygen Saturation 96% 12/30/2024 10:01 AM EDT Inhaled Oxygen Concentration - - Weight 83.5 kg (184 lb) 12/30/2024 10:01 AM EDT Height 167.6 cm (5' 6 ) 12/30/2024 10:01 AM EDT Body Mass Index 29.7 12/30/2024 10:01 AM EDT documented in this encounter Progress Notes * Jacque Randall MD - 12/30/2024 10:15 AM EDT Images from the original note were not included. Cardiology [facility] Note Subjective Patient is here today for a 1 year follow up with ECHO. Patient states he feels good andhas no cardiac complaints at this time HPI: Lonnie Carroll is a 59 y.o. year old male with coronary artery disease status post PCI with BMS to circumflex in 2018, and BILINGUAL STUDENT TUTOR of RCA, hypertension, and dyslipidemia seen in follow-up. He has been doing well since last seen. No cardiac concerns. He tries to walk routinely, he walks his dog. Denies c/o CP, dyspnea, orthopnea, PND, LE edema, dizziness/LH, palpitations, syncope. UPDATE 12/30/2024 Doing well; no new symptoms Is unclear if he had symptoms prior to his coronary artery disease and stent placement in 2018 Patient Active Problem List Diagnosis Coronary arteriosclerosis in [place] artery Dyslipidemia Essential hypertension Nonrheumatic mitral valve regurgitation Peripheral artery disease Elevated serum creatinine Former smoker Mixed hyperlipidemia Positive colorectal cancer screening using Cologuard test Family History Problem Relation Name Age of Onset Heart attack Mother Heart attack Father Social History Tobacco Use Smoking status: Former Current packs/day: 0.00 Types: Cigarettes Start date: 1992 Quit date: 2018 Years since quittin.3 Smokeless tobacco: Never Substance Use Topics Alcohol use: Yes Alcohol/week: 6.0 standard drinks of alcohol Types: 6 Cans of beer per week Drug use: Never Review of Systems All other systems reviewed and are negative. Objective BP 133/88 (BP Location: Right arm, Patient Position: Sitting) Pulse 62 Ht 1.676 m (5' 6 ) Wt 83.5 kg (184 lb) SpO2 96% BMI 29.70 kg/m?? Physical Exam Constitutional: Appearance: Normal appearance. He is normal weight. HENT: Head: Normocephalic and atraumatic. Right Ear: External ear normal. Left Ear: External ear normal. Eyes: Extraocular Movements: Extraocular movements intact. Pupils: Pupils are equal, round, and reactive to light. Neck: Vascular: No carotid bruit. Cardiovascular: Rate and Rhythm: Normal rate and regular rhythm. Pulses: Normal pulses. Heart sounds: Normal heart sounds. Pulmonary: Effort: Pulmonary effort is normal. Breath sounds: Normal breath sounds. Abdominal: General: Bowel sounds are normal. Palpations: Abdomen is soft. Musculoskeletal: General: Normal range of motion. Cervical back: Neck supple. Right lower leg: No edema. Left lower leg: No edema. Skin: General: Skin is warm and dry. Neurological: General: No focal deficit present. Mental Status: He is alert and oriented to person, place, and time. Psychiatric: Mood and Affect: Mood normal. Behavior: Behavior normal. Thought Content: Thought content normal. Judgment: Judgment normal. Allergies No Known Allergies Medications Current Outpatient Medications: aspirin 81 mg EC tablet, in the morning., Disp: , Rfl: atorvastatin (Lipitor) 80 mg tablet, atorvastatin 80 mg tablet take 1 tablet by mouth once daily, Disp: , Rfl: carvedilol (Coreg) 25 mg tablet, Take 1 tablet (25 mg) by mouth in the morning and at bedtime., Disp: 180 tablet, Rfl: 3 clopidogrel (Plavix) 75 mg tablet, clopidogrel 75 mg tablet take 1 tablet by mouth once daily, Disp: , Rfl: Recent Labs 08/07/23 Cr 1.04, BUN 17, K 4.1, Na 139, eGFR > 60, AST 23, ALT 35 Chol 124, trig 107, LDL 64, HDL 39 06/12/2022 Hgb 13, hematocrit 39.1, platelets 252 Sodium 139, potassium 4.0, chloride 104, CO2 28.4, BUN 91, serum creatinine 1.16 TC 121, H 37, T 76, L 68.8 Imaging and other tests ABIs: 01/16/2021 Significant left outflow tibioperoneal arterial disease with mild hemodynamic impairment (left DP 0.93) of the left lower extremity at rest. CVL 12/05/17 FINAL IMPRESSION: 1. Severe stenosis of the left circumflex coronary artery, successfully treated by balloon angioplasty and bare-metal stent placement. 2. Subtotal occlusion of the right coronary artery; this appears to be a chronic total occlusion. 3. Mild disease of the left anterior descending coronary artery. 4. Mildly reduced global left ventricular systolic function. Echocardiogram from 10/24/2017 LV systolic function difficult to assess related to imaging appears low end of normal RV systolic function normal Mild diastolic dysfunction Mild tricuspid valve regurg, mild to moderate mitral valve regurg Echocardiogram 12/29/2024: Global left ventricular systolic function is normal; EF is 60%. There is hypokinesis of the basal inferior segment. Normal right ventricular size and systolic function No significant valvular dysfunction Mild to moderate biatrial dilatation Mildly elevated right-sided pressures Assessment Coronary artery disease, history of PCI/stent placement Chronic total occlusion of the right coronary artery Hypertension Dyslipidemia Peripheral arterial disease; mildly abnormal ABIs left DP 0.93 Mitral valve regurgitation Plan Continue guideline directed medical therapy for coronary artery disease including dual antiplatelettherapy given residual coronary disease, a beta- shwetha, and high intensity statin therapy Given the duration of time since his last cardiac catheterization, and known residual coronary disease (BILINGUAL STUDENT TUTOR RCA), as well as paucity of symptoms prior to his previous PCI, I recommended a treadmill Cardiolite stress test Treat noncardiac comorbidities as clinically appropriate Return to clinic in a year or sooner should problems arise or the stress test show significant ischemia Jacque Randall MD, MPH, FACC, [facility], [facility] Interventional Cardiology Pager Email: [email or web address] documented in this encounter Plan of Treatment Scheduled Orders Name Type Priority Associated Diagnoses Orde r Schedule Treadmill Stress Myocardial Perfusion Imaging Cardiac Services Routine Coronary artery disease involving [place] coronary artery of [place] heart without angina pectoris Expected: 12/30/2024 (Approximate), Expires: 12/30/2026 documented as of this encounter Visit Diagnoses Diagnosis Coronary artery disease involving [place] coronary artery of [place]ie heart without angina pectoris- Primary Nonrheumatic mitral valve regurgitation Benign hypertensive heart disease without congestive heart failure Benign hypertensive heart disease without heart failure Chronic total occlusion of coronary artery documented in this encounter Care Teams Patient Support Associate Relationship Specialty Start Date End Date Mile Abraham MD [address] [place] [address] PCP - General 11/05/22 documented as of this encounter
--- NOTE | 2025-01-11 08:15 | NM_ITS ---
Patient Name: LOGAN DEL CID MR#: [id number] : 1965 Exam Date: 01/11/2025 Ordering Doctor: DR ELA BROUSSARD M.D. RADIOLOGY REPORT PROCEDURE: NM AMANDA PERF SPECT REST STR COMPARISON: None. INDICATIONS: CORONARY ARTERY DISEASE TECHNIQUE: Exam Description: Stress/Rest one day protocol gated SPECT Rest Imagin.0 mCi Tc-99m Cardiolite IV on 01/11/2025 Stress Imaging 31.3 mCi Tc-99m Cardiolite IV on 01/11/2025 Exercise Protocol: 0.4 mg Lexiscan given IV Heart Rate (bpm): Rest: 96 Max: 97 PMHR: 60 Blood Pressure: Rest: 150/90 Max: 150/90 Symptoms: Rest and peak stress ECG findings were pending and the exercise portion of the study was pending per attending physician [facility] . For more details please see separate cardiac stress test report. FINDINGS: QUALITY OF STUDY: Good PERFUSION DEFECT: None LOCATION: SIZE: SEVERITY: TYPE: WALL MOTION: Normal LV SIZE: 81 mL. TID / TCD: 0.8 LVEF: Calculated EF 74%. SUMMARY: Normal Myocardial perfusion imaging study CONCLUSION: Normal myocardial perfusion stress test, no ischemia or infarction Normal left ventricular systolic function, ejection fraction 74% No transient ischemic dilatation, TID 0.8. EKG portion of stress test is reported separately Dictated by: Taj Velasquez MD on 01/13/2025 at 16:04 Approved by: Taj Velasquez MD on 01/13/2025 at 16:10
--- NOTE | 2025-01-11 08:53 | PCN_ITS ---
CARDIAC STRESS TEST ? Requesting Physician:? Jacque Randall M.D. ? Procedure Date:? 01/11/2025 ? INDICATION FOR THIS TEST:? Chest pain. ? At baseline, patient?s resting heart rate was 96 beats per minute, with a blood pressure of 150/90.? At peak, the heart rate was 97, with a blood pressure of 150/90 mm/Hg.?? ? At baseline, EKG showed sinus rhythm with normal intervals.? With subsequent infusion of medicine, vasodilators, patient developed significant ST segment depression in the inferior and lateral leads; lead 2, 3, AVF and anterior leads from V3-V6.? These findings persisted with infusion of vasodilator and started noticing at the 7-8 minute beryl.? Eight minutes post infusion, the patient?s EKG returned to baseline.? Patient did not report any chest pain during this, and occasional PVCs were noted during this study. ? IMPRESSION: 1.? Significant ST segment depression noted during vasodilator study, reflective of possible ischemia in the inferior as well as anterolateral wall 2. Occasional PVCs seen during stress test. 3.? Recommend follow up cardiac catheterization to further evaluation coronary anatomy. 4.? Nuclear perfusion study to be dictated separately by the team. JI
--- OUTSIDE RECORDS SUMMARY | 2025-01-11 08:55 | XMS_ITS | Clinical Summary ---
Author Organization [facility] Address [address] [place] [address] Care Team Providers Care Foam Cutting Supervisor Name Role Phone Mile Abraham MD Primary Care Provider [phone] Allergies No known active allergies Medications Medication Sig Dispensed Refills Start Date End Date Status aspirin 81 mg EC tablet in the morning. Active atorvastatin (Lipitor) 80 mg tablet atorvastatin 80 mg tablet take 1 tablet by mouth once daily Active clopidogrel (Plavix) 75 mg tablet clopidogrel 75 mg tablet take 1 tablet by mouth once daily Active carvedilol (Coreg) 25 mg tabletIndications: Essential hypertension Take 1 tablet (25 mg) by mouth in the morning and at bedtime. 180 tablet 3 05/10/2024 05/10/2025 Active Active Problems Problem Noted Date Diagnosed Date Positive colorectal cancer screening using Colog uard test 08/16/2024 Elevated serum creatinine 08/11/2024 Former smoker 12/29/2023 Overview (12/29/2024): Offered low dose CT chest 12/2022: declined screening Nonrheumatic mitral valve regurgitation 11/12/19 24 Peripheral artery disease 11/12/2023 Mixed hyperlipidemia 09/01/2023 Coronary arteriosclerosis in [place] artery 01/06 Dyslipidemia 01/07/2020 Essential hypertension 11/28/2017 Encounters Date Type Department Care Team Description 12/30/2024 10:15 AM EDT Office Visit [facility] [address] [place] [address] Jacque Randall MD Coronary artery disease involving [place] coronary artery of [place] heart without angina pectoris (Primary Dx); Nonrheumatic mitral valve regurgitation; Benign hypertensive heart disease without congestive heart failure; Chronic total occlusion of coronary artery from Last 3 Months Family History Medical History Relation Name Comments Heart attack Father Heart attack Mother Relation Name Status Comments Father Mother Social History Tobacco Use Types Packs/Day Years Used Date Smoking Tobacco: Former Cigarettes 2017 Smokeless Tobacco: Never Tobacco Cessation:Counseling Given: Not Answered Alcohol Use Standard Drinks/Week Comments Not Currently 0 (1 standard drink = 0.6 oz pur e alcohol) 6 to 12 per week [place] Safety & Environment Answer Date Rec orded Fear of Current or Ex-Partner Not on file Emotionally Abused Not on file 10/02/2023 Physically Abused Not on file 10/02/2023 Sexually Abused Not on file 10/02/2023 Physically or Sexually Abused Not on file Sex and Gender Information Value Date Recorded Sex Assigned at Not on file Gender Identity Not on file Sexual Orientation Not on file Last Filed Vital Signs Vital Sign Reading Time Taken Comments Blood Pressure 133/88 12/30/2024 10:01 AM EDT Pulse 62 12/30/2024 10:01 AM EDT Temperature - - Respiratory Rate 12 11/12/2023 1:04 PM EDT Oxygen Saturation 96% 12/30/2024 10:01 AM EDT Inhaled Oxygen Concentration - - Weight 83.5 kg (184 lb) 12/30/2024 10:01 AM EDT Height 167.6 cm (5' 6 ) 12/30/2024 10:01 AM EDT Body Mass Index 29.7 12/30/2024 10:01 AM EDT Plan of Treatment Health Maintenance Due Date Last Done Comments CT Colonography 1965 Colonoscopy 1965 FIT-DNA 1965 FOBT 1965 Sigmoidoscopy 1965 Pneumococcal Vaccine: Pediat rics (0 to 5 Years) and At-Risk Patients (6 to 64 Years) (1 of 2 - PCV) 1971 Depression Screening 1977 Hepatitis B Vaccines (1 of 3 - 19+ 3-dose series) 1984 Adult Tetanus 1987 Zoster Vaccines (1 of 2) 2015 COVID-19 Vaccine ( - 2023-2 5 season) 2024 Influenza Vaccine (Season Ended) 2025 Colorectal Cancer Screening 07/30/2025 FIT 07/30/2025 07/30/2024 HIB Vaccines Aged Out No longer eligi ble based on patient's age to complete this topic HPV Vaccines Aged Out No longer eligi ble based on patient's age to complete this topic IPV Vaccines Aged Out No longer eligi ble based on patient's age to complete this topic Meningococcal B Vaccine Aged Out No l onger eligible based on patient's age to complete this topic Meningococcal Vaccine Aged Out No mayra maria g eligible based on patient's age to complete this topic Rotavirus Vaccines Aged Out No longer eligible based on patient's age to complete this topic Care Teams Foam Cutting Supervisor Relationship Specialty Start Date End Date Mile Abraham MD [address] [place] [address] PCP - General 11/05/22
--- OUTSIDE RECORDS SUMMARY | 2025-01-11 08:55 | XMS_ITS | Encounter Summary ---
Author Organization [facility] Address [address] [place] [address] Care Team Providers Care Dye Boarding Machine Operator Name Role Phone Mile Abraham MD Primary Care Provider [phone] Reason for Visit * Reason Comments Med Refill Encounter Details Date Type Department Care Team (Late st Contact Info) Description 04/29/2023 Refill [facility] [address] [place] [id number] Smita Funes, SENIOR GAMEMASTER [address] [place] [address] Essential hypertension Social History Tobacco Use Types Packs/Day Years Used Date Smoking Tobacco: Former Cigarettes 2017 Smokeless Tobacco: Never Alcohol Use Standard Drinks/Week Comments Yes 6 (1 standard drink = 0.6 oz pur e alcohol) Sex and Gender Information Value Date Recorded Sex Assigned at Not on file Gender Identity Not on file Sexual Orientation Not on file documented as of this encounter Plan of Treatment Not on file documented as of this encounter Visit Diagnoses Diagnosis Essential hypertension Unspecified essential hypertension documented in this encounter Care Teams Dye Boarding Machine Operator Relationship Specialty Start Date End Date Mile Abraham MD [address] [place] [address] PCP - General 11/05/22 documented as of this encounter
--- OUTSIDE RECORDS SUMMARY | 2025-01-11 08:55 | XMS_ITS | Referral Summary ---
Author Organization [facility] Address [address] [place] [address] Care Team Providers Care Manager Placement Name Role Phone Mile Abraham MD Primary Care Provider [phone] Encounters Date Type Department Care Team Description 12/30/2024 10:15 AM EDT Office Visit [facility] [place] [address] [place] [address] Jacque Randall MD Coronary artery disease involving algaaciq coronary artery of algaaciq heart without angina pectoris (Primary Dx); Nonrheumatic mitral valve regurgitation; Benign hypertensive heart disease without congestive heart failure; Chronic total occlusion of coronary artery from Last 3 Months Allergies No known active allergies Medications Medication [...] 11/12/2023 Mixed hyperlipidemia 09/01/2023 Coronary arteriosclerosis in algaaciq artery 01/06 Dyslipidemia 01/07/2020 Essential hypertension 11/28/2017 Social History Tobacco Use Types Packs/Day Years Used Date Smoking Tobacco: Former Cigarettes 2017 Smokeless Tobacco: Never Tobacco Cessation:Counseling Given: Not Answered Alcohol Use Standard Drinks/Week Comments Not Currently 0 (1 standard drink = 0.6 oz pur e alcohol) 6 to 12 per week [facility] Safety [facility] Environment Answer Date Rec orded [...] 12/30/2024 10:01 AM EDT Plan of Treatment Not on file Care Teams Manager Placement Relationship Specialty Start Date End Date Mile Abraham MD [address] [place] [address] PCP - General 11/05/22
--- OUTSIDE RECORDS SUMMARY | 2025-01-11 08:55 | XMS_ITS | Clinical Summary ---
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 180 tablet 1 4 Active atorvastatin (Lipitor) 80 MG tabletIndications:C oronary artery disease involving ruby coronary artery of ruby heart without angina pectoris (CMS/HCC),Mixed hyperlipidemia (CMS/HCC) Take 1 tablet (80 mg) by mouth at bedtime 90 tablet 1 5 Active Active Problems Problem Noted Date Diagnosed Date Positive colorectal cancer screening using Colog uard test 08/16/2024 Elevated serum creatinine 08/11/2024 Screening for colon cancer 12/29/2023 Assessment & Plan (06/15/2024 10:07 AM EST): Colon cancer screening options were discussed with patient, as well as why colon cancer screening is indicated. Options are Colonoscopy: direct visualization, every 10 years (unless indicated more frequently), risks and benefits were discussed Cologuard: every 3 years, risks and benefits were discussed , contraindications were discussed (family hx of colon cancer, colon polyps) Patient has elected to: cologuard Screening for prostate cancer 12/29/2023 Overview (08/11/2024): PSA: 08/07/2023 1.29 08/09/24: 1.13 Former smoker 12/29/2023 Overview (12/29/2023): Offered low dose CT chest 12/2022: declined screening Assessment & Plan (06/15/2024 10:08 AM EST): Patient meets requirements for low dose CT scan for lung cancer screening: age 55-80, patient is a current smoker or has quit in the last 15 years. Smoking history is > or equal to 30 pack-year (35 pack year). If needed the patient is able or willing to receive treatment. The patient is not currently exhibiting any s/s of lung cancer. We have discussed the benefits as well as harms of screening, follow up testing if needed, false positive rates. We have also discussed that this type of CT scan has less radiation exposure than a traditional lung CT scan. We have also discussed that it is important to follow with annual screening for this. The patient has also been counseled on the importance of smoking cessation. Pt declines Peripheral artery disease 11/12/2023 Assessment & Plan (06/15/2024 6:21 AM EST): Based on EFRAIN's LLE Cont statin, and asa Nonrheumatic mitral valve regurgitation 11/12/19 Assessment & Plan (12/29/2023 9:44 AM EDT): Cont with cardiology They recommend ECHO, he cannot afford it at this time He will get to this when he can afford them Coronary artery disease invo lving ruby coronary artery of ruby heart without angina pectoris 09/01/2023 Assessment & Plan (06/15/2024 6:21 AM EST): Cont statin, ASA, and b shwetha Assessment & Plan (12/29/2023 9:43 AM EDT): No chest pain, I have reviewed cardiology notes Mixed hyperlipidemia 09/01/2023 Assessment & Plan (06/15/2024 6:21 AM EST): Continue statin Lower fat diet options Essential hypertension 11/28/2017 Assessment & Plan (06/15/2024 6:21 AM EST): Stable, no change in dose Refilled meds, fu in 6 momths Assessment & Plan (12/29/2023 9:44 AM EDT): Stable, no change in dose Refilled meds, fu in 6 momths Encounters Date Type Department Care Team Description 12/16/2024 Clinisync Result Encounter [facility] External Department Unsolicited Provider, Generic External Data from Last 3 Months Social History Tobacco Use Types Packs/Day Years Used Date Smoking Tobacco: Former Cigarettes Q uit: 2018 Smokeless Tobacco: Never Tobacco Cessation:Counseling Given: Not Answered Alcohol Use Standard Drinks/Week Comments Yes 14 (1 standard drink = 0.6 oz pu re alcohol) caffine: pepsi 6 daily Social Connection and Isolation Panel [NHANES] A nswer Date Recorded In a typical week, how many times do you talk on the phone with family, friends, or neighbors? Twice a week 12/28/2023 How often do you get togethe r with friends or relatives? Never 12/28/2023 How often do you attend christian or jain serv ices? Never 12/28/2023 Do you belong to any clubs o r organizations such as christian groups, unions, fraternal or athletic groups, or school groups? No 12/28/2023 How often do you attend meet ings of the clubs or organizations you belong to? Patient declined 12/28/2023 Are you , , di vorced, , never , or living with a partner? Patient declined 12/28/2023 AUDIT-C Answer Date Recorded Q1: How often do you have a drink containing alc ohol? 2-3 times a week 12/28/2023 Q2: How many drinks containi ng alcohol do you have on a typical day when you are drinking? Patient declined 12/28/2023 Q3: How often do you have si x or more drinks on one occasion? Patient declined 12/28/2023 Overall Financial Resource Strain (CARDIA) Answe r Date Recorded How hard is it for you to pa y for the very basics like food, housing, medical care, and heating? Somewhat hard 12/28/2023 [facility] [place] [facility] Occupat ional Health - Occupational Stress Questionnaire Answer Date Recorded Do you feel stress - tense, restless, nervous, or anxious, or unable to sleep at night because your mind is troubled all the time - these days? Not at all 12/28/2023 Exercise Vital Sign Answer Date Recorde d On average, how many days pe r week do you engage in moderate to strenuous exercise (like a brisk walk)? 5 days On average, how many minutes do you engage in exercise at this level? Patient declined 12/28/2023 Hunger Vital Sign Answer Date Recorded Within the past 12 months, y ou worried that your food would run out before you got the money to buy more. Sometimes true Within the past 12 months, t he food you bought just didn't last and you didn't have money to get more. Sometimes true PRAPARE - Transportation Answer Date Re corded In the past 12 months, has l ack of transportation kept you from medical appointments or from getting medications? No 12/09 In the past 12 months, has l ack of transportation kept you from meetings, work, or from getting things needed for daily living? No 12/28/2023 Housing Stability Vital Sign Answer Ulisses e Recorded In the last 12 months, was t here a time when you were not able to pay the mortgage or rent on time? Yes 12/28/2023 Number of Places Lived in the Last Year Not on f ile 12/28/2023 In the last 12 months, was t here a time when you did not have a steady place to sleep or slept in a mcfp (including now)? No 12/28/2023 Sex and Gender Information Value Date Recorded Sex Assigned at Not on file Legal Sex Male 10:30 AM EST Gender Identity Not on file Sexual Orientation Not on file Last Filed Vital Signs Vital Sign Reading Time Taken Comments Blood Pressure 110/80 06/15/2024 9:45 AM EST Pulse 66 06/15/2024 9:45 AM EST Temperature 36.9 C (98.5 F) 06/15/2024 9:45 AM EST Respiratory Rate 18 06/15/2024 9:45 AM EST Oxygen Saturation 99% 06/15/2024 9:45 AM EST Inhaled Oxygen Concentration - - Weight 80.3 kg (177 lb) 06/15/2024 9:45 AM EST Height 167.6 cm (5' 6 ) 06/15/2024 9:45 AM EST Body Mass Index 28.57 06/15/2024 9:45 AM EST Plan of Treatment Upcoming Encounters Date Type Department Care Team (Late st Contact Info) Description 01/31/2025 8:40 AM EDT Office Visit [facility] [address] [place] [address] Mile Abraham, [place]UNG [address] [place] [address] Health Maintenance Due Date Last Done Comments CT Colonography 1965 Colonoscopy 1965 FIT 1965 FOBT 1965 Sigmoidoscopy 1965 Influenza Vaccine (Season Ended) 2025 Colorectal Cancer Screening 07/30/2027 FIT-DNA 07/30/2027 07/30/2024, 05/11, 05/25/2021 Procedures Procedure Name Priority Date/Time Associated Diagnosis Comments CA ECHO DOPPLER COMPLETE 12/16/2024 9:14 PM EDT LAB COLOGUARD COLON CANCER SCREEN Routine 07/30/2024 11:30 AM EST Screening for colon cancer from Last 3 Months or Most Recently Relevant to Health Maintenance Results * CA ECHO DOPPLER COMPLETE (12/16/2024 9:14 PM EDT) Anatomical Region Laterality Modality Other 12/16/2024 9:14 PM EDT Narrative 12/16/2024 9:14 PM EDT The [address] [address] Cardiology Report Signed Patient: LOGAN DEL CID MR#: [id number] : 1965 Acct:[id number] Age/Sex: 59 / M ADM Date: 12/16/24 Loc: CARD Attending Dr: AIXA BERNAL APRN Ordering Physician: AIXA BERNAL APRN Date of Service: 12/16/24 Procedure(s): CA echo doppler complete Accession Number(s): [id number] cc: Mile Abraham SUPERVISOR DIAGNOSTIC; AIXA BERNAL APRN Patient Name: LOGAN DEL CID MR#: [id number] : 1965 Exam Date: 12/16/2024 Ordering Doctor: AIXA BERNAL PRINCIPAL SYSTEMS ARCHITECT ECHOCARDIOGRAM REPORT PROCEDURE: CA ECHO DOPPLER COMPLETE INDICATIONS: Nonrheumatic mitral valve regurgitation, hypertension, cardiac stents COMPARISON: None. DESCRIPTION: COMPLETE ECHOCARDIOGRAM Real-time transthoracic echocardiography with 2D, M-mode, spectral and color flow Doppler performed. QUALITY: Technical quality was good. LEFT VENTRICLE: Normal chamber size. Mild concentric left ventricular hypertrophy. Normal systolic function. There is hypokinesis of the basal inferior segment, with good contractility of the remaining segments. LV EF: Normal left ventricular ejection fraction, (>55%). DIASTOLIC: ATRIAL SEPTUM: Visually appears intact. LEFT ATRIUM: Mild dilatation. RIGHT ATRIUM: Moderate dilatation. RIGHT VENTRICLE: Normal chamber size. Normal right ventricular systolic function. TRICUSPID VALVE: Normal mobility and thickness. No stenosis with trivial regurgitation. Doppler studies reveal mildly (35-45) elevated right sided pressures. RVSP 39 mmHg MITRAL VALVE: Normal mobility and thickness. No evidence of mitral valve stenosis. There is no mitral annular calcification. Trivial mitral regurgitation. AORTIC VALVE: Normal trileaflet appearance. Normal leaflet mobility. No evidence of aortic valve stenosis. No aortic regurgitation. AORTIC ROOT: Normal diameter and appearance, measuring 3.4 cm. Ascending aorta is normal in size. PULMONIC VALVE: Normal thickness and mobility. No stenosis. Trivial regurgitation. PERICARDIUM: No evidence of pericardial effusion. IVC: IVC is normal in size, does not fully collapse. PLEURA: CONCLUSION: 1. Mild concentric left ventricular hypertrophy with normal systolic function. Estimated LVEF is 60%. There is hypokinesis of the basal inferior segment. 2. Normal right ventricular size and systolic function. 3. No significant valvular dysfunction. 4. Mild to moderate biatrial dilatation. 5. Mildly elevated right-sided pressures. Adult Echocardiography Procedure Report Left Ventricle LVEDD (3.7 - 5.6 cm): 4.12 cm LVESD (2.2 - 4.0 cm): 3.21 cm LVIVS thickness (0.6 - 1.2 cm): 1.15 cm LVPW thickness (0.5 - 1.0 cm): 1.32 cm e': 0.10 m/s E - e': 6.03 LVOT Max Gradient: 1.15 mm[Hg] LVOT Area (cm2): 0.54 m/s Peak Velocity (LVOT): 0.54 m/s Mean Velocity (LVOT): 0.38 m/s LVOT Diameter 2.21 cm Left Atrium LA Volume Index (2D A2C): 39.50 ml/m2 Left Atrium Systolic Dimension: 3.61 cm Mitral Valve MV E to A Ratio: 1.35 Mitral Valve A-Wave Peak Velocity: 0.46 m/s Mitral Valve E-Wave Peak Velocity: 0.62 m/s Right Ventricle Aorta AO Root Diam: 3.36 cm Ascending Ao Diam: 2.63 cm Aortic Valve AoV Area (Peak Jason): 2.46 cm2, 2.46 cm2 AoV Area (VTI): 2.84 cm2, 2.84 cm2 Peak Velocity(Antegrade Flow): 0.84 m/s Peak Gradient(Antegrade Flow): 2.80 mm[Hg] Mean Velocity(Antegrade Flow): 0.61 m/s Mean Gradient(Antegrade Flow): 1.62 mm[Hg] Velocity Time Integral: 20.47 cm Tricuspid Valve Peak Velocity (Regurgitant Flow): 3.01 m/s, 2.41 m/s, 2.76 m/s Pulmonic Valve Mean Gradient: 2.54 mm[Hg] Mean Velocity: 0.74 m/s Peak Velocity: 1.13 m/s, 1.15 m/s Peak Gradient: 5.27 mm[Hg], 5.11 mm[Hg] Right Atrium Right Atrium Systolic Pressure: 73.92 ml, 73.92 ml Dictated by: Cecilio Newman M.D. on 12/16/2024 at 21:08 Approved by: Cecilio Newman M.D. on 12/16/2024 at 21:13 Dictated By: CECILIO NEWMAN Signed By: 12/16/242113 DD/ 13 TD/TT: Medical Cash Poster: Procedure Note Radiology, Radiologist, MD - 12/17/2024 [facility] [place] [id number] Cardiology Report Signed Patient: LOGAN DEL CID AMR#: [id number] : 1965Acct:[id number] Age/Sex: 59 / MADM Date: 12/16/24 Loc: CARD Attending Dr: AIXA BERNAL APRN Ordering Physician: AIXA BERNAL APRN Date of Service: 12/16/24 Procedure(s): CA echo doppler complete Accession Number(s): [id number] cc: Mile Abraham NP; AIXA BERNAL APRN Patient Name: LOGAN DEL CID MR#: [id number] : 1965 Exam Date: 12/16/2024 Ordering Doctor: AIXA BERNAL PRINCIPAL SYSTEMS ARCHITECT ECHOCARDIOGRAM REPORT PROCEDURE: CA ECHO DOPPLER COMPLETE INDICATIONS: Nonrheumatic mitral valve regurgitation, hypertension, cardiac stents COMPARISON: None. DESCRIPTION: COMPLETE ECHOCARDIOGRAM Real-time transthoracic echocardiography with 2D, M-mode, spectral and color flow Dopplerperformed. QUALITY: Technical quality was good. LEFT VENTRICLE: Normal chamber size. Mild concentric left ventricular hypertrophy. Normal systolic function. There is hypokinesis of the basal inferior segment, with good contractility of the remaining segments. LV EF: Normal left ventricular ejection fraction, (>55%). DIASTOLIC: ATRIAL SEPTUM: Visually appears intact. LEFT ATRIUM: Mild dilatation. RIGHT ATRIUM: Moderate dilatation. RIGHT VENTRICLE: Normal chamber size. Normal right ventricularsystolic function. TRICUSPID VALVE: Normal mobility and thickness. No stenosis withtrivial regurgitation. Doppler studies reveal mildly (35-45) elevated right sided pressures. RVSP 39 mmHg MITRAL VALVE: Normal mobility and thickness. No evidence of mitralvalve stenosis. There is no mitral annular calcification. Trivial mitral regurgitation. AORTIC VALVE: Normal trileaflet appearance. Normal leaflet mobility.No evidence of aortic valve stenosis. No aortic regurgitation. AORTIC ROOT: Normal diameter and appearance, measuring 3.4 cm.Ascending aorta is normal in size. PULMONIC VALVE: Normal thickness and mobility. No stenosis. Trivial regurgitation. PERICARDIUM: No evidence of pericardial effusion. IVC: IVC is normal in size, does not fully collapse. PLEURA: CONCLUSION: 1. Mild concentric left ventricular hypertrophy with normal systolicfunction. Estimated LVEF is 60%. There is hypokinesis of the basal inferiorsegment. 2. Normal right ventricular size and systolic function. 3. No significant valvular dysfunction. 4. Mild to moderate biatrial dilatation. 5. Mildly elevated right-sided pressures. Adult Echocardiography Procedure Report Left Ventricle LVEDD (3.7 - 5.6 cm): 4.12 cm LVESD (2.2 - 4.0 cm): 3.21 cm LVIVS thickness (0.6 - 1.2 cm): 1.15 cm LVPW thickness (0.5 - 1.0 cm): 1.32 cm e': 0.10 m/s E - e': 6.03 LVOT Max Gradient: 1.15 mm[Hg] LVOT Area (cm2): 0.54 m/s Peak Velocity (LVOT): 0.54 m/s Mean Velocity (LVOT): 0.38 m/s LVOT Diameter 2.21 cm Left Atrium LA Volume Index (2D A2C): 39.50 ml/m2 Left Atrium Systolic Dimension: 3.61 cm Mitral Valve MV E to A Ratio: 1.35 Mitral Valve A-Wave Peak Velocity: 0.46 m/s Mitral Valve E-Wave Peak Velocity: 0.62 m/s Right Ventricle Aorta AO Root Diam: 3.36 cm Ascending Ao Diam: 2.63 cm Aortic Valve AoV Area (Peak Jason): 2.46 cm2, 2.46 cm2 AoV Area (VTI): 2.84 cm2, 2.84 cm2 Peak Velocity(Antegrade Flow): 0.84 m/s Peak Gradient(Antegrade Flow): 2.80 mm[Hg] Mean Velocity(Antegrade Flow): 0.61 m/s Mean Gradient(Antegrade Flow): 1.62 mm[Hg] Velocity Time Integral: 20.47 cm Tricuspid Valve Peak Velocity (Regurgitant Flow): 3.01 m/s, 2.41 m/s, 2.76 m/s Pulmonic Valve Mean Gradient: 2.54 mm[Hg] Mean Velocity: 0.74 m/s Peak Velocity: 1.13 m/s, 1.15 m/s Peak Gradient: 5.27 mm[Hg], 5.11 mm[Hg] Right Atrium Right Atrium Systolic Pressure: 73.92 ml, 73.92 ml Dictated by: Cecilio Newman M.D. on 12/16/2024 at 21:08 Approved by: Cecilio Newman M.D. on 12/16/2024 at 21:13 Dictated By: CECILIO NEWMAN Signed By:12/16/242113 DD/ 13 TD/TT: Medical Cash Poster: us Generic External Data Provider [facility] Final Result * (ABNORMAL) Cologuard?? colon cancer screening (07/30/2024 11:30 AM EST) NONINV COLON CA DNA+OCC BLD SCRN STL-IMP Positive( A) Negative 08/07/2024 10:23 AM EST [facility] (CLIA #:[id number]) Comment: POSITIVE TEST RESULT. A positive Cologuard result should be followed with a colonoscopy or visual examination of the colon. The normal value (reference range) for this assay is negative. TEST DESCRIPTION: Composite algorithmic analysis of stool DNA-biomarkers with hemoglobin immunoassay. Quantitative values of individual biomarkers are not reportable and are not associated with individual biomarker result reference ranges. Cologuard is intended for colorectal cancer screening of adults of either sex, 45 years or older, who are at average-risk for colorectal cancer (CRC). Cologuard has been approved for use by the U.S. FDA. The performance of Cologuard was established in a cross sectional study of average-risk adults aged 50-84. Cologuard performance in patients ages 45 to 49 years was estimated by sub-group analysis of near-age groups. Colonoscopies performed for a positive result may find as the most clinically significant lesion: colorectal cancer [4.0%], advanced adenoma (including sessile serrated polyps greater than or equal to 1cm diameter) [20%] or non- advanced adenoma [31%]; or no colorectal neoplasia [45%]. These estimates are derived from a prospective cross-sectional screening study of 10,000 individuals at average risk for colorectal cancer who were screened with both Cologuard and colonoscopy. (Imperiale T. et al, N Engl J Med 2014;370(14):0292-7434.) Cologuard may produce a false negative or false positive result (no colorectal cancer or precancerous polyp present at colonoscopy follow up). A negative Cologuard test result does not guarantee the absence of CRC or advanced adenoma (pre-cancer). The current Cologuard screening interval is every 3 years. ([place] [employer] Society and U.S. Multi-Society Task Force). Cologuard performance data in a 10,000 patient pivotal study using colonoscopy as the reference method can be accessed at the following location: [email or web address]. Additional description of the Cologuard test process, warnings and precautions can be found at [email or web address]. Stool specimen (specimen) 07/30/2024 11:30 AM EST 07/31/2024 7:17 AM EST Mile Abraham NP LAB MOLECULAR DIAGNOSTICS ORDER GALE Final Result [facility] (CLIA #:[id number]) [place] [address], from Last 3 Months or Most Recently Relevant to Health Maintenance Insurance [address] # [address] [place] [address] [employer] Care Teams Assembler Final Relationship Specialty Start Date End Date Damon Velez MD [address] [facility] [place] [id number] PCP - General Family Medicine 12/29/23 Mile Abraham NP [address] [place] [address] Nurse Practitioner Family Medicine 06/11/23
--- NOTE | 2025-01-11 10:16 | PC.NURSE ---
Nursing Note Cardiac Stress Test Reviewed: Medication, allergies and patient history reviewed. Stress Test: [x ] Patient tolerated stress test well. [x ] Patient unable to tolerate walking on treadmill. Switched to Lexiscan stress test. [ x] No chest pain noted per patient [ ] Chest pain that resolved prior to leaving stress lab. [ ] No dyspnea noted. [ x] Dyspnea that resolved prior to leaving stress lab. [x ] Patient left stress lab asymptomatic and hemodynamically stable. [ ] Patient taken to the Emergency Room due to non-resolving symptoms following stress test. [ ] Patient achieved target heart rate. [x ] Patient unable to achieve target heart rate. [ ] Aminophylline administered as reversal agent to Lexiscan (Regadenoson). [ ] Nitro administered. Nursing Comments:Pt had BP that was over the limits of being able to do the stress test this AM prior to his resting images. Pt was scheduled for a TM test but brought BP medication to take and was instructed by this RN to take it to be able to do the test. Pt attempted to do the TM but was unable to reach target due to the BP med so he was switched to a Lexiscan test which he tolerated well. Pt did have some SOB that resolved within 2 minutes of rest but had no chest pain throughout the test. Pt left stress lab with no symptoms and ambulated to cafeteria for breakfast prior to second set of images.
[2025-01-11] MEDS: REGADENOSON 0.4 MG/5 ML SYRINGE IV (10:20)
== END 2025-01-11 08:54 | disposition home or self-care (01) ==
LOC: NM 08:53
PROVIDERS: PCP Nurse Practitioner; Visit Provider Internal Medicine Interventional Cardiology
DX: I25.10 Atherosclerotic heart disease of native coronary artery without angina pectoris (principal)
CPT/HCPCS: 78452; 93017; A9500; J2785